=== PATIENT | female | born 2005 | race Caucasian/White ===

== ENCOUNTER 2024-05-20 00:30 | Emergency (ER) | payer BC ==
[2024-05-20] MEDS ORDERED: Ondansetron PF 4 MG/2 ML Vial ONE (01:03)
[2024-05-20] MEDS ORDERED: fentaNYL 50 mcg/mL 1 mL Vial ONE (01:03)
[2024-05-20] MEDS ORDERED: Sodium Chloride 0.9% 1,000 ML ONE (01:03)
[2024-05-20 01:27] LABS: Bilirubin Negative (Negative); Blood, Urine Trace (Negative); Clarity Slightly Cloudy (Clear); Glucose, Urine (Dipstick) Negative (Negative); Ketone, Urine Negative (Negative); Leukocyte Trace (Negative); Nitrite Negative (Negative); Protein, Urine (Dipstick) Negative (Neg-Trace); Urobilinogen 0.2 mg/dL (Less than 2); pH, Urine 5.5 (5.0-9.0)
[2024-05-20 01:31] LABS: CAUTI Indications for Culture Dysuria,urgency,freq; RBC/HPF 0-3 HPF (0-3); Specific Gravity, Urine 1.025 (1.002-1.036); WBC/HPF 0-3 HPF (0-3)
[2024-05-20 01:32] LABS: Mucous/LPF 1+ LPF (<2+); Urine Culture Reflex No No
[2024-05-20 02:09] LABS: Hematocrit 40.9 % (36.0-47.0); Hemoglobin 13.3 g/dL (12.0-16.0); Mean Corpuscular HGB CONC 32.6 g/dL (32.0-36.0); Mean Corpuscular Hemoglobin 29.7 pg (25.0-35.0); Mean Corpuscular Volume 91.1 fl (78.0-98.0); Mean Platelet Volume 5.8 fL (7.4-10.4); Platelet Count 337 10x3/uL (130-400); RBC Distribution Width 11.6 % (11.5-14.5); Red Blood Cell (RBC) Count 4.49 mill/uL (4.00-5.20)
[2024-05-20 02:10] LABS: Band 3 % (5-11); Eosinophils 1 % (0-10); Lymphocytes 24 % (28-48); MDiff Complete? YES; Monocytes 9 % (0-4); Neutrophil 63 % (31-61)
[2024-05-20 02:11] LABS: BHCG - Serum Negative (NEGATIVE); Pregs Control Background? CLEAR/WHITE (CLR/WHITE); Pregs Control Bar Appear? YES (CONTROL BAR)
[2024-05-20 02:58] LABS: ALT (SGPT) 25 U/L (8-55); AST (SGOT) 21 U/L (5-30); Alkaline Phosphatase 77 U/L (40-100); Anion Gap 17 mmol/L (10-20); BUN (Urea Nitrogen) 13 mg/dL (8.4-21.0); Bilirubin, Total 0.4 mg/dL (0.2-1.2); Calc. Creatinine Clearance 0 mL/min (70-130); Calcium 8.9 mg/dL (7.8-10.44); Carbon Dioxide 19 mmol/L (22-29); Chloride 106 mmol/L (98-107); Estimated GFR 119; Globulin 3.8 g/dL (2.4-3.5); Glucose 84 mg/dL (70-105); Protein, Total 7.8 g/dL (6.0-8.3); Sodium 138 mmol/L (136-145)
[2024-05-20] MEDS ORDERED: Ketorolac Tromethamine 30 MG (1 mL) VIAL ONE (03:13)
[2024-05-20] MEDS ORDERED: Iopamidol 370 76% 100 ML VIAL ONE (09:00)
== END 2024-05-20 03:27 | disposition home or self-care (01) ==
LOC: MADERS 00:30
DX: N83.201 Unspecified ovarian cyst, right side (principal); R11.0 Nausea; F17.290 Nicotine dependence, other tobacco product, uncomplicated
CPT/HCPCS: 74177; 80053; 81001; 84703; 85025; 94760; 96374; 96375; J1885; J2405; J3010; J7030; Q9967